=== PATIENT | female | born 1990 | race Caucasian/White ===

== ENCOUNTER 2019-10-13 12:46 | Outpatient (CLI) | payer OTHER, SELFPAY | END 2019-10-13 12:47 | disposition home or self-care (01) | LOC: ANHAUDIO 12:48 | PROVIDERS: PCP Physician Assistant; Visit Provider Physician Assistant | DX: H91.93 Unspecified hearing loss, bilateral (principal) | CPT/HCPCS: 92552; 92556; 92567 ==

== ENCOUNTER → 2020-05-14 08:49 | Outpatient (CLI) | payer BC, SELFPAY ==
--- NOTE | ~2020-05-14 | US_ITS ---
US breast BI complete 05/14/2020 09:36 Indication: Breast pain. Palpable right axillary lump. Procedure: High-resolution bilateral breast ultrasound Comparison: No prior studies for comparison. Findings: There are 2 normal-appearing lymph nodes in the right axilla, largest measuring 1.7 cm grea test dimension. No other mass is identified in either breast. No sonographic evidence for malignancy. Impression: 1: No sonographic evidence for malignancy in either breast. Benign-appearing lymph nodes correspond t o the area of palpable concern in the right axilla. BI-RADS CATEGORY 2 - BENIGN FINDINGS Reviewed, dictated and finalized at location A. L PUNCH PRESS OPERATOR Impression: 1: No sonographic evidence for malignancy in either breast. Benign-appearing ly mph nodes correspond to the area of palpable concern in the right axilla. BI-RADS CATEGORY 2 - BENIGN FINDINGS
== END ==
PROVIDERS: Visit Provider Nurse Practitioner Obstetrics & Gynecology
DX: N64.4 Mastodynia (principal); N63.10 Unspecified lump in the right breast, unspecified quadrant
CPT/HCPCS: 76641

== ENCOUNTER 2020-09-13 09:01 | Outpatient (CLI) | payer BC, MEDICAID, SELFPAY ==
--- NOTE | 2020-09-15 15:34 | WPDHOLTEREM ---
Holter/Event Monitor Holter/Event Monitor Date of procedure: 09/13/20 Procedure Type: 24 hour holter monitor Indications: Irregular heart rate Conclusion: 1. 24 hour holter monitor on 09/13/20. 2. Underlying rhythm is sinus rhythm. HR range 53-130 bpm; average HR 88 bpm. 3. There is one premature supraventricular complex. No supraventricular tachycardia. 4. There are 89 premature ventricular complexes and 3 ventricular trigeminy. No ventricular tachycardia. 5. No sinoatrial or atrioventricular blocks. No significant pauses greater than 2 seconds. 6. Patient reports symptoms of loss of breath for a second which demonstrate sinus rhythm, HR range 71-85 bpm.
== END 2020-09-13 09:02 | disposition home or self-care (01) ==
PROVIDERS: PCP Physician Assistant; Visit Provider Obstetrics & Gynecology
DX: R00.8 Other abnormalities of heart beat (principal)
CPT/HCPCS: 93225; 93226

== ENCOUNTER 2020-11-24 19:06 | Observation (INO) | payer BC, MEDICAID, SELFPAY ==
[2020-11-24 19:22] VITALS: BP 128/76; PULSE 79
--- NOTE | 2020-11-24 20:01 | OBADM ---
This patient, Gloria Diehl, admitted to the OB room OB Post 113 for observation. Patient/family oriented to hospital policies and general routines including ID bracelet, bed and alarms, visiting hours, pain management, procedures, bathroom and other care routines, personal items, smoking policy, room service/diet, and visiting hours. Patient/Family are encouraged to report perceived risks to care and to ask questions if they do not understand what they are told or what they should do.
--- NOTE | 2020-11-29 17:05 | PM.OBTRLD ---
OB - Triage/Final Diagnosis Visit Information Date of evaluation: 11/24/20 Reason for evaluation: decreased movement Comments/Additional reasons for admission: I have assessed the risk for this patient, Gloria Diehl, and determined that she would benefit from observation care.
== END 2020-11-24 19:45 | disposition home health service (06) ==
PROVIDERS: Admitting Provider Obstetrics & Gynecology; PCP Physician Assistant; Visit Provider Obstetrics & Gynecology
DX: O36.8130 Decreased fetal movements, third trimester, not applicable or unspecified (principal); Z3A.31 31 weeks gestation of pregnancy
CPT/HCPCS: 59025; G0378

== ENCOUNTER 2020-12-06 12:48 | Outpatient (RCR) | payer BC, MEDICAID, SELFPAY ==
[2020-12-06 14:12] VITALS: BP 126/57; PULSE 84
== END 2021-01-11 08:17 | disposition home or self-care (01) ==
LOC: ANHOBOP 12:48
PROVIDERS: PCP Physician Assistant; Visit Provider Obstetrics & Gynecology
DX: O24.419 Gestational diabetes mellitus in pregnancy, unspecified control (principal); Z3A.00 Weeks of gestation of pregnancy not specified
CPT/HCPCS: 59025

== ENCOUNTER 2020-12-16 10:01 | Outpatient (CLI) | payer BC, MEDICAID, SELFPAY ==
[2020-12-16] VITALS (8 sets, daily range): BP systolic 104–128; BP diastolic 49–65; PULSE 62–77
[2020-12-16 10:59] LABS: Basophils Percent Auto 0.2 % (0.2-1.2); Eosinophils Percent Auto 0.4 % (0-4.4); Hematocrit 32.5 % (37.0-47.0); Hemoglobin 10.1 g/dL (12.0-15.0); Immature Granulocyte Absolute 0.03 K/mm3 (0.00-0.031); Immature Granulocyte Percent A 0.3 % (0-0.5); Lymphocytes Absolute Auto 1.55 K/mm3 (0.9-3.2); Lymphocytes Percent Auto 16.5 % (18.3-44.2); Mean Corpuscular HGB Conc 31.1 g/dl (32-36); Mean Corpuscular Hemoglobin 23.5 pg (26-34); Mean Corpuscular Volume 75.8 fl (80-100); Mean Platelet Volume 11.6 fl (7.4-10.4); Monocytes Absolute Auto 0.6 K/mm3 (0.1-0.6); Neutrophils Absolute Auto 7.2 K/mm3 (1.3-6.7); Neutrophils Percent Auto 76.6 % (45.5-73.1); Platelet Count Result 196 k/mm3 (150-375); Red Blood Count 4.29 M/mm3 (4.2-5.4); Red Cell Distribution Width 14.6 % (11.5-14.5); White Blood Count 9.4 K/mm3 (4.5-10.0)
[2020-12-16 11:06] LABS: Creatinine Urine 84.8 mg/dL; Total Protein Urine Random 22 mg/dL; Ur Ttl Prot Creatinine Ratio 0.26 mg/mg (0-0.20)
[2020-12-16 11:10] LABS: Alanine Aminotransferase 9 U/L (4-35); Albumin Level 3.2 g/dL (3.5-5.1); Alkaline Phosphatase 89 U/L (38-126); Anion Gap 9 mmol/L (8-16); Aspartate Amino Transferase 17 U/L (14-36); Bilirubin,Total 0.1 mg/dL (0.2-1.3); Blood Urea Nitrogen 9 mg/dL (7-17); Calcium 9.3 mg/dL (8.4-10.2); Carbon Dioxide 19 mmol/L (22-30); Chloride 109 mmol/L (98-107); Estimated Glomerular Filt Rate > 60; Glucose 86 mg/dL (65-105); Potassium 3.9 mmol/L (3.4-5.0); Sodium 137 mmol/L (137-145); Uric Acid 3.8 mg/dL (2.5-7.5)
== END 2020-12-16 12:40 | disposition home or self-care (01) ==
LOC: ANHOBOP 10:08 → ANHOBPP 10:09
PROVIDERS: PCP Physician Assistant; Visit Provider Obstetrics & Gynecology
DX: O13.9 Gestational [pregnancy-induced] hypertension without significant proteinuria, unspecified trimester (principal)
CPT/HCPCS: 36415; 59025; 80053; 82570; 84156; 84550; 85025; 87086; 87088; 99199

== ENCOUNTER 2021-01-04 11:38 | Observation (INO) | payer BC, MEDICAID, SELFPAY ==
[2021-01-04 12:15] VITALS: BP 127/73; PULSE 90
[2021-01-04 12:30] VITALS: BP 128/71; PULSE 85
[2021-01-04 12:45] VITALS: BP 119/74; PULSE 89
[2021-01-04 13:47] VITALS: BMI 45.1
--- NOTE | 2021-01-04 13:47 | LDADM ---
This patient, Gloria Diehl, was admitted to OB Post 112 on 01/04/21 at 11:38. Plans for labor, pain management and were discussed with patient. Patient/family oriented to hospital policies and general routines including ID bracelet, bed and alarms, visiting hours, pain management, procedures, bathroom and other care routines, personal items, smoking policy, room service/diet and guest tray routines, infant security routines, and visiting hours. Patient/Family are encouraged to report perceived risks to care and to ask questions if they do not understand what they are told or what they should do. See OBIX for further documentation.
--- NOTE | 2021-01-04 13:58 | OBADM ---
This patient, Gloria Diehl, admitted to the OB room OB Post 112 for observation. Patient/family oriented to hospital policies and general routines including ID bracelet, bed and alarms, visiting hours, pain management, procedures, bathroom and other care routines, personal items, smoking policy, room service/diet, and visiting hours. Patient/Family are encouraged to report perceived risks to care and to ask questions if they do not understand what they are told or what they should do.
--- NOTE | 2021-01-04 13:58 | PC.NURSE ---
Patient came to us with c/o vaginal bleeding and possible contractions.
--- NOTE | 2021-01-04 13:59 | PC.NURSE ---
Spoke with Dr. Blancas in person about patient status. Dr. Blancas stated to monitor patient, check patient cervix, and if blood pressure remains stable and baby remains reactive she is okay for discharge.
--- NOTE | 2021-01-07 13:14 | PM.OBTRLD ---
OB - Triage/Final Diagnosis Visit Information Comments/Additional reasons for admission: I have assessed the risk for this patient, Gloria Clifton Fazal, and determined that she would benefit from observation care. Final Diagnosis (1) PIH ( induced hypertension): Code(s): O13.9 - Gestational [-induced] hypertension without significant proteinuria, unspecified trimester Status: Acute
== END 2021-01-04 13:40 | disposition home or self-care (01) ==
PROVIDERS: Admitting Provider Obstetrics & Gynecology; PCP Physician Assistant; Visit Provider Obstetrics & Gynecology
DX: O13.9 Gestational [pregnancy-induced] hypertension without significant proteinuria, unspecified trimester (principal); Z3A.00 Weeks of gestation of pregnancy not specified
CPT/HCPCS: G0378; G0379

== ENCOUNTER 2021-01-07 06:26 | Inpatient (IN) | payer BC, MEDICAID, SELFPAY ==
[2021-01-07] VITALS (53 sets, daily range): BP systolic 83–156; BP diastolic 45–110; PULSE 63–127; RESP 16–20; TEMP 36.4–36.9; O2SAT 94–100; BMI 45.3
--- NOTE | 2021-01-07 06:26 | LDADM ---
This patient, Gloria Diehl, was admitted to Labor/Delivery/Recovery 106 on 01/07/21 at 06:26. Plans for labor, pain management and were discussed with patient. Patient/family oriented to hospital policies and general routines including ID bracelet, bed and alarms, visiting hours, pain management, procedures, bathroom and other care routines, personal items, smoking policy, room service/diet and guest tray routines, security routines, and visiting hours. Patient/Family are encouraged to report perceived risks to care and to ask questions if they do not understand what they are told or what they should do. See OBIX for further documentation.
[2021-01-07] MEDS: AMPICILLIN 2 GM/NS 100 ML 2 GM/100 ML BAG IVPB (07:05)
[2021-01-07] MEDS: LACTATED RINGERS 1,000 ML 125 ML IV CONT ×2 (07:05→11:10)
[2021-01-07] MEDS: OXYTOCIN 30 UNITS/NS 500 ML 30 UNITS/500 ML BAG IV CONT (07:22)
[2021-01-07 07:35] LABS: Basophils Percent Auto 0.1 % (0.2-1.2); Eosinophils Absolute Auto 0.1 K/mm3 (0-0.3); Eosinophils Percent Auto 1.1 % (0-4.4); Hematocrit 35.8 % (37.0-47.0); Hemoglobin 10.8 g/dL (12.0-15.0); Immature Granulocyte Absolute 0.05 K/mm3 (0.00-0.031); Immature Granulocyte Percent A 0.5 % (0-0.5); Lymphocytes Absolute Auto 2.35 K/mm3 (0.9-3.2); Lymphocytes Percent Auto 25.1 % (18.3-44.2); Mean Corpuscular HGB Conc 30.2 g/dl (32-36); Mean Corpuscular Hemoglobin 22.4 pg (26-34); Mean Corpuscular Volume 74.1 fl (80-100); Mean Platelet Volume 12.1 fl (7.4-10.4); Monocytes Absolute Auto 0.5 K/mm3 (0.1-0.6); Monocytes Percent Auto 5.3 % (2.6-8.5); Neutrophils Absolute Auto 6.3 K/mm3 (1.3-6.7); Neutrophils Percent Auto 67.9 % (45.5-73.1); Platelet Count Result 240 k/mm3 (150-375); Red Blood Count 4.83 M/mm3 (4.2-5.4); Red Cell Distribution Width 15.5 % (11.5-14.5); White Blood Count 9.4 K/mm3 (4.5-10.0)
[2021-01-07 07:46] LABS: Alanine Aminotransferase 11 U/L (4-35); Albumin Level 3.6 g/dL (3.5-5.1); Alkaline Phosphatase 112 U/L (38-126); Anion Gap 9 mmol/L (8-16); Aspartate Amino Transferase 18 U/L (14-36); Bilirubin,Total 0.2 mg/dL (0.2-1.3); Blood Urea Nitrogen 9 mg/dL (7-17); Calcium 9.3 mg/dL (8.4-10.2); Carbon Dioxide 20 mmol/L (22-30); Chloride 107 mmol/L (98-107); Estimated CRCL calculation 164 ml/min; Estimated Glomerular Filt Rate > 60; Glucose 104 mg/dL (65-105); Potassium 3.8 mmol/L (3.4-5.0); Sodium 136 mmol/L (137-145)
--- NOTE | 2021-01-07 07:50 | WPDOBADMIT ---
Obstetrics - Admit Note Admission Note: record reviewed. No pertinent additions to the history and/or any subsequent changes in the physical findings that are not consistent with the expected course of the were found. Additions to the history and/or subsequent changes in the physical findings follow. IOL for PIH. BP normal this am. FHT category 1 Pitocin now, AROM at noon. GBS pos, amp started at 0700.
[2021-01-07 08:40] LABS: Uric Acid 4.1 mg/dL (2.5-7.5)
--- NOTE | 2021-01-07 09:28 | WPDANESEPP ---
Anes - Eval Pre Procedure Procedure: labor Pain management Date/Time: 01/07/21 09:28 Pre Op Diagnosis: pain during labor Patient Data Age: 31 Gender: F Height: 1.57 m Weight: 112.5 kg Last Vital Signs Temp 97.9 F 01/07/21 06:45 Pulse 74 01/07/21 08:31 BP 127/61 01/07/21 08:31 Allergies Allergy/AdvReac Type Severity Reaction Status Date / Time nickel Allergy Rash Verified 01/07/21 06:38 Home Medications Medication Instructions Recorded Confirmed Type aspirin 81 mg PO DAILY 11/24/20 01/07/21 History omeprazole magnesium [Acid Leaf Sticker 20 mg PO DAILY 11/24/20 01/07/21 History (omeprazole)] PNV cmb#95-ferrous fumarate-FA 1 tablet PO DAILY 12/16/20 01/07/21 History [] ferrous sulfate 28 mg PO DAILY 12/16/20 01/07/21 History insulin NPH and regular human 10 unit SUBCUT DAILY 12/25/20 01/07/21 History Laboratory Tests 01/07/21 01/07/21 01/07/21 07:02 07:02 07:02 WBC 9.4 K/mm3 K/mm3 (4.5-10.0) RBC 4.83 M/mm3 M/mm3 (4.2-5.4) Hgb 10.8 g/dL L g/dL (12.0-15.0) Hct 35.8 % L % (37.0-47.0) MCV 74.1 fl L fl (80-100) MCH 22.4 pg L pg (26-34) MCHC 30.2 g/dl L g/dl (32-36) RDW 15.5 % H % (11.5-14.5) Plt Count 240 k/mm3 k/mm3 (150-375) MPV 12.1 fl H fl (7.4-10.4) Immature Gran % (Auto) 0.5 % % (0-0.5) Neut % (Auto) 67.9 % % (45.5-73.1) Lymph % (Auto) 25.1 % % (18.3-44.2) [place] % (Auto) 5.3 % % (2.6-8.5) Eos % (Auto) 1.1 % % (0-4.4) Baso % (Auto) 0.1 % L % (0.2-1.2) Lymph # (Auto) 2.35 K/mm3 K/mm3 (0.9-3.2) [place] # (Auto) 0.5 K/mm3 K/mm3 (0.1-0.6) Eos # (Auto) 0.1 K/mm3 K/mm3 (0-0.3) Baso # (Auto) 0.0 K/mm3 K/mm3 (0.0-0.1) Abs Immat Gran (auto) 0.05 K/mm3 H K/mm3 (0.00-0.031) Absolute Neuts (auto) 6.3 K/mm3 K/mm3 (1.3-6.7) Absolute Nucleated RBC 0.0 K/mm3 K/mm3 (0.0-0.012) Nucleated RBC % 0.0 % % (0.0-0.2) Sodium Potassium Chloride Carbon Dioxide Anion Gap BUN Creatinine Estim Creat Clear Calc Estimated GFR Glucose Uric Acid 4.1 mg/dL mg/dL (2.5-7.5) Calcium Total Bilirubin AST ALT Alkaline Phosphatase Total Protein Albumin RPR Pending 01/07/21 07:02 WBC RBC Hgb Hct MCV MCH MCHC RDW Plt Count MPV Immature Gran % (Auto) Neut % (Auto) Lymph % (Auto) [place] % (Auto) Eos % (Auto) Baso % (Auto) Lymph # (Auto) [place] # (Auto) Eos # (Auto) Baso # (Auto) Abs Immat Gran (auto) Absolute Neuts (auto) Absolute Nucleated RBC Nucleated RBC % Sodium 136 mmol/L L mmol/L (137-145) Potassium 3.8 mmol/L mmol/L (3.4-5.0) Chloride 107 mmol/L mmol/L (98-107) Carbon Dioxide 20 mmol/L L mmol/L (22-30) Anion Gap 9 mmol/L mmol/L (8-16) BUN 9 mg/dL mg/dL (7-17) Creatinine 0.50 mg/dL L mg/dL (0.7-1.0) Estim Creat Clear Calc 164 ml/min ml/min Estimated GFR > 60 (59 - ) Glucose 104 mg/dL mg/dL (65-105) Uric Acid Calcium 9.3 mg/dL mg/dL (8.4-10.2) Total Bilirubin 0.2 mg/dL mg/dL (0.2-1.3) AST 18 U/L U/L (14-36) ALT 11 U/L U/L (4-35) Alkaline Phosphatase 112 U/L U/L (38-126) Total Protein 7.0 g/dL g/dL (6.3-8.2) Albumin 3.6 g/dL g/dL (3.5-5.1) RPR Patient hx anesthesia problems: none Family hx anesthesia problems: none PMFSH Past Medical History Medical History Tobacco abuse
[2021-01-07 10:46] LABS: Glucose Point of Care 92 mg/dl (65-105)
[2021-01-07] MEDS: fentaNYL CITRATE INJ (*CRX) 100 MCG/2 ML VIAL 50 MCG IV PUSH (11:09)
[2021-01-07] MEDS: AMPICILLIN 1 GM/NS 50 ML 1 GM/50 ML BAG IVPB (11:15)
[2021-01-07 11:50] LABS: Rapid Plasma Reagin Non-Reactive (NonReactive)
--- NOTE | 2021-01-07 13:04 | PM.OBPRVD ---
OB - Delivery Note Procedure Delivery date: 01/07/21 Procedure: events: Induced HTN Intrapartal events: None Induction method: per pitocin protocol Delivery monitor: external FHT and external uterine Route of delivery: Laceration Description: Perineal - 1st Degree Delivery repair: vicryl Specimen: No Quantitative Blood Loss (ml): 350 Anesthesia type: Epidural Disposition: floor Narrative: With adequate expulsive efforts by the mother, the baby's head was delivered OA. The baby's anterior shoulder was delivered under the pubic symphysis without difficulty. The posterior shoulder and the rest of the baby delivered without difficulty. The was placed on the mothers chest and suctioned and stimulated. The cord was clamped and cut after 30 seconds. Mother and baby both stable. Baby Date of : 01/07/21 Time of : 12:49 Weeks of gestation at delivery: 37 Weight (pounds): 7 Weight (ounces): 3 presentation: vertex Placenta delivery description: Spontaneous cord vessel description: 3 Vessels and Delayed Cord Clamping score one minute: 9 score five minutes: 9
[2021-01-07] MEDS: OXYTOCIN 30 UNITS/NS 500 ML 30 UNITS/500 ML BAG 125 UNITS IV CONT (13:24)
[2021-01-07] MEDS: WITCH HAZEL 40 PADS 1 PAD TOPICAL (15:03)
[2021-01-07] MEDS: BENZOCAINE 20% AER SPR (*SP) 56 GM CAN 1 SPRAY TOPICAL (15:03)
[2021-01-07] MEDS: ACETAMINOPHEN 325 MG TABLET 650 MG PO ×2 (15:05→22:14)
--- NOTE | 2021-01-07 15:30 | PC.NURSE ---
Patient transferred to post room #290 per wheelchair from labor and delivery. Support person present. Oriented to unit, room, information board, rooming in, admission packet and security measures. Patient verbalizes understanding.
[2021-01-08 03:59] VITALS: BP 136/76; PULSE 71; RESP 16; RESP 17; TEMP 36.9; O2SAT 99
[2021-01-08 05:25] LABS: Hematocrit 32.2 % (37.0-47.0); Hemoglobin 9.2 g/dL (12.0-15.0)
[2021-01-08] MEDS: IBUPROFEN 600 MG TABLET PO ×3 (06:51→19:12)
[2021-01-08 07:00] VITALS: BP 137/66; PULSE 72; RESP 16; TEMP 36.1; O2SAT 100
--- NOTE | 2021-01-08 08:18 | WPDANLDPN2 ---
Anes-Prog Note L&D Date/Time: 01/08/21 08:18 Comfortable throughout: labor and delivery Neuraxial method: epidural Epidural/Spinal procedure site: clean & non-tender Neuro status: Neuro function grossly intact. Cardiovascular status: normal Respiratory status: normal Airway patency: baseline Mental status: baseline Post-Op hydration status: normal Vital Signs: Last Vital Signs Temp 36.1 C L 01/08/21 07:00 Pulse 72 01/08/21 07:00 Resp 16 01/08/21 07:00 BP 137/66 01/08/21 07:00 Pulse Ox 100 01/08/21 07:00 Pain score (VAS): 0/10. Patient resting in bed at time of assessment, Support person at bedside. I/O: Intake & Output 01/07/21 01/08/21 01/08/21 23:59 07:59 15:59 Intake Total 1300 400 Output Total 860 460 Balance 440 -60 Post-procedural complaints: none Patient feedback: Patient satisfied with anesthetic care.
--- NOTE | 2021-01-08 09:26 | PM.OBPNVD ---
OB - PN: Subj Subjective Date/time seen: 01/08/21 09:26 Interval history: Exhausted, breast feeding not going well so far. Patient comments: pain well controlled [place] feeding status: breast and bottle feeding OB - PN: Obj Data Labs CBC & Chem 7: 01/08/21 04:47 01/07/21 07:02 Labs: Laboratory Results - last 24 hr 01/07/21 01/07/21 01/07/21 07:02 07:02 10:44 Hgb Hct POC Capillary Glucose 92 RPR Non-reactive Blood Type A Positive Antibody Screen Negative 01/08/21 04:47 Hgb 9.2 L Hct 32.2 L POC Capillary Glucose RPR Blood Type Antibody Screen OB - PN A/P Plan day: 1 Plan: routine care Comments: BPs 130s/70s staying until tomorrow since GBS pos. Time Spent With Patient Time: Total time spent is greater than 50% in coordination of care (as documented) at patient's floor/unit and/or counseling patient: Time with patient: less than 15 minutes Exam Narrative: Exam Narrative: NAD abdomen soft, nontender, fundus firm below the umbilicus Extremities nontender, 1+ edema
[2021-01-08] MEDS: DOCUSATE SODIUM 100 MG CAPSULE PO ×2 (10:50→17:02)
[2021-01-08] MEDS: MULTIVIT/MIN/PREN/FOL AC/IRON TABLET 1 TAB PO (10:51)
[2021-01-08] MEDS: POLYSACCHARIDE IRON COMPLEX 150 MG CAPSULE PO ×2 (10:51→17:02)
[2021-01-08 12:00] VITALS: BP 131/55; PULSE 74; RESP 16; TEMP 37.1; O2SAT 100
[2021-01-08] MEDS: ACETAMINOPHEN 325 MG TABLET 650 MG PO (17:02)
[2021-01-08 17:16] VITALS: BP 133/68; PULSE 65; RESP 20; TEMP 36.3
[2021-01-08] MEDS: SIMETHICONE 80 MG TAB.CHEW PO (19:12)
[2021-01-08 19:24] VITALS: BP 116/63; PULSE 78; RESP 16; TEMP 36.5
[2021-01-09 03:08] VITALS: BP 112/57; PULSE 79
[2021-01-09 09:17] VITALS: PULSE 79; RESP 16; O2SAT 100
[2021-01-09 09:43] VITALS: BP 128/63; PULSE 81; RESP 20; TEMP 36.3; O2SAT 97
[2021-01-09] MEDS: POLYSACCHARIDE IRON COMPLEX 150 MG CAPSULE PO (09:53)
[2021-01-09] MEDS: DOCUSATE SODIUM 100 MG CAPSULE PO (09:53)
[2021-01-09] MEDS: ACETAMINOPHEN 325 MG TABLET 650 MG PO (09:54)
[2021-01-09] MEDS: MULTIVIT/MIN/PREN/FOL AC/IRON TABLET 1 TAB PO (09:54)
--- NOTE | 2021-01-09 10:04 | P.PNOB_ITS ---
OB - PN: Subj Subjective Date/time seen: 01/09/21 10:04 Patient comments: no complaints and pain well controlled baby status: doing well [place] feeding status: breast and bottle feeding Narrative: complains of anxiety already getting pretty bad. declined meds during , but would like to start something now. OB - PN: Obj Data Labs CBC & Chem 7: 01/08/21 04:47 01/07/21 07:02 OB - PN A/P Plan day: 2 Plan: routine care and discharge home Comments: BP check 1 week will start zoloft now. discussed usage, RBA. Time Spent With Patient Time: Total time spent is greater than 50% in coordination of care (as documented) at patient's floor/unit and/or counseling patient: Time with patient: less than 15 minutes Exam Narrative: Exam Narrative: NAD abdomen soft, nontender, fundus firm below the umbilicus Extremities nontender, 1+ edema
--- NOTE | 2021-01-09 10:09 | P.DS_ITS ---
DS: Admitting Diagnosis Admitting Diagnosis Admitting Diagnosis: PIH, GDM, 37 week DS: Discharge Diagnosis Discharge Diagnosis (1) PIH ( induced hypertension): Code(s): O13.9 - Gestational [-induced] hypertension without significant proteinuria, unspecified trimester Status: Acute (2) , delivered: Code(s): O80 - Encounter for full-term uncomplicated delivery Status: Acute OB - DS: Summary Hospital Course Hospital Course: Pt had an uncomplicated vaginal delivery and course. BPs were stable at normal or mildly elevated. She started zoloft for anxiety. OB Procedures : NST, PIH Mgmt and Ultrasound OB Procedures Intrapartum: Spontaneous Vag Delivery OB Procedures: : None Peripartum Data Delivery Method: Natural Vaginal complications: none Status at Discharge Functional status at discharge: independent ambulation Overall status at discharge: patient is back to baseline Time Spent with Patient Time attestation: Total time spent providing and/or coordinating discharge services: Exam Narrative: Exam Narrative: NAD abdomen soft, appropriately tender Ext non tender, 1+ edema Discharge Plan Discharge Attending physician on discharge: arthur Consulting providers: Crystal Blancas Discharging Clinician: Crystal Blancas Anticipated Discharge Date/Time: 01/09/21 12:00 Patient Disposition: Home, Self-Care Activity: pelvic rest Diet: regular Patient Instructions: Antibiotic Form Stand Alone Forms: General Discharge Information Follow-up/Referrals: Crystal Blancas MD [Physician] - 1 Week Discharge Medications: New sertraline [Zoloft] 50 mg Tablet 50 mg PO HS Qty: 30 RF: 2 Continued omeprazole magnesium [Acid Director Of Land (omeprazole)] 20 mg Capsule,Delayed Release(Dr/Ec) 20 mg PO DAILY RF: 0 ferrous sulfate 28 mg iron Tablet 28 mg PO DAILY RF: 0 PNV cmb#95-ferrous fumarate-FA [] 28 mg iron- 800 mcg Tablet 1 tablet PO DAILY RF: 0 Discontinued aspirin 81 mg Tablet 81 mg PO DAILY RF: 0 insulin NPH and regular human 100 unit/mL (70-30) Syringe 10 unit SUBCUT DAILY RF: 0 Date of admission: 01/07/21 06:26 Primary Care Provider: NarenSharmaine Admitting Provider: Crystal Blancas Attending physician on admission: Crystal Blancas Condition: Stable
[2021-01-11 10:51] VITALS: BP 132/66; PULSE 79; RESP 20; TEMP 37.2; O2SAT 98
== END 2021-01-09 11:20 | disposition home or self-care (01) | DRG 807 ==
LOC: ANHLDR 09:30 → ANHOB2 15:38
PROVIDERS: Admitting Provider Obstetrics & Gynecology; PCP Physician Assistant; Visit Provider Obstetrics & Gynecology
DX: O13.4 Gestational [pregnancy-induced] hypertension without significant proteinuria, complicating childbirth (principal); Z37.0 Single live birth; O70.0 First degree perineal laceration during delivery; O24.424 Gestational diabetes mellitus in childbirth, insulin controlled; O99.344 Other mental disorders complicating childbirth; O76 Abnormality in fetal heart rate and rhythm complicating labor and delivery; Z3A.37 37 weeks gestation of pregnancy; F41.8 Other specified anxiety disorders
CPT/HCPCS: 36415; 80053; 82948; 84550; 85014; 85018; 85025; 86592; 86850; 86900; 86901; A9270; G0378; G0379; J0290; J2590; J2795; J3010; J7120

== ENCOUNTER 2021-11-02 15:42 | Outpatient (CLI) | payer BC, MEDICAID, SELFPAY ==
[2021-11-02 16:14] LABS: Hematocrit 39.8 % (37.0-47.0); Hemoglobin 11.8 g/dL (12.0-15.0); Mean Corpuscular HGB Conc 29.6 g/dl (32-36); Mean Corpuscular Hemoglobin 24.1 pg (26-34); Mean Corpuscular Volume 81.4 fl (80-100); Mean Platelet Volume 10.7 fl (7.4-10.4); Platelet Count Result 272 k/mm3 (150-375); Red Blood Count 4.89 M/mm3 (4.2-5.4); Red Cell Distribution Width 17.2 % (11.5-14.5)
[2021-11-02 16:23] LABS: Alanine Aminotransferase 23 U/L (4-35); Albumin Level 4.7 g/dL (3.5-5.1); Alkaline Phosphatase 56 U/L (38-126); Anion Gap 11 mmol/L (8-16); Aspartate Amino Transferase 24 U/L (14-36); Bilirubin,Total 0.1 mg/dL (0.2-1.3); Blood Urea Nitrogen 8 mg/dL (7-17); Calcium 8.9 mg/dL (8.4-10.2); Carbon Dioxide 26 mmol/L (22-30); Chloride 102 mmol/L (98-107); Estimated Glomerular Filt Rate > 60; Glucose 133 mg/dL (65-110); Potassium 3.6 mmol/L (3.4-5.0); Sodium 139 mmol/L (137-145)
== END 2021-11-02 15:43 | disposition home or self-care (01) ==
LOC: ANHLAB 15:53
PROVIDERS: PCP Physician Assistant; Visit Provider Obstetrics & Gynecology
DX: O00.90 Unspecified ectopic pregnancy without intrauterine pregnancy (principal); Z3A.00 Weeks of gestation of pregnancy not specified
CPT/HCPCS: 36415; 80053; 84702; 85027

== ENCOUNTER 2023-09-07 13:47 | Outpatient (CLI) | payer OTHER, MEDICAID, SELFPAY ==
--- NOTE | ~2023-09-07 | US_ITS ---
EXAMINATION: US abdomen complete DATE: 09/07/2023 16:25 INDICATION: Right upper quadrant pain TECHNIQUE: Multiple grayscale and Doppler ultrasound images of the abdomen were obtained. COMPARISON: None available FINDINGS: Bowel gas obscures visualization of the pancreas. The visualized portions of the pancreas a re unremarkable. The liver demonstrates increased echogenicity, heterogenous echotexture, and decreas ed through transmission, consistent with hepatic steatosis. No surface nodularity. Normal hepatopetal flow in the main portal vein. The gallbladder is normal with no abnormal wall thickening, pericholec ystic fluid or stones. The normal common bile duct measures 5 mm. There was no sonographic P[place] sig n. The visualized portions of the aorta and inferior vena cava are normal. The spleen is normal in appearance and measures 13.2 cm. The right kidney measures 10.9 x 5.6 x 6.1 c m. The left kidney measures 12.8 x 6.3 x 5.8 cm. The kidneys demonstrate normal parenchymal echogenic ity. There is no hydronephrosis. IMPRESSION: 1. No sonographic correlate for the patient's symptoms. Reviewed, dictated and finalized at location F. TRY BARN MANAGER
[2023-09-07 14:45] LABS: Basophils Percent Auto 0.2 % (0.2-1.2); Eosinophils Absolute Auto 0.1 K/mm3 (0-0.3); Eosinophils Percent Auto 1.4 % (0-4.4); Hematocrit 39.5 % (37.0-47.0); Immature Granulocyte Absolute 0.02 K/mm3 (0.00-0.031); Immature Granulocyte Percent A 0.2 % (0-0.5); Lymphocytes Absolute Auto 2.22 K/mm3 (0.9-3.2); Lymphocytes Percent Auto 27.5 % (18.3-44.2); Mean Corpuscular HGB Conc 30.4 g/dl (32-36); Mean Corpuscular Hemoglobin 24.3 pg (26-34); Mean Corpuscular Volume 80.1 fl (80-100); Mean Platelet Volume 11.3 fl (7.4-10.4); Monocytes Absolute Auto 0.4 K/mm3 (0.1-0.6); Monocytes Percent Auto 4.3 % (2.6-8.5); Neutrophils Absolute Auto 5.4 K/mm3 (1.3-6.7); Neutrophils Percent Auto 66.4 % (45.5-73.1); Platelet Count Result 268 k/mm3 (150-375); Red Blood Count 4.93 M/mm3 (4.2-5.4); Red Cell Distribution Width 15.8 % (11.5-14.5); White Blood Count 8.1 K/mm3 (4.5-10.0)
[2023-09-07 15:24] LABS: Alanine Aminotransferase 31 U/L (6-35); Albumin Level 4.6 g/dL (3.5-5.1); Alkaline Phosphatase 57 U/L (38-126); Amylase 47 U/L (30-110); Anion Gap 12 mmol/L (8-16); Aspartate Amino Transferase 31 U/L (14-36); Bilirubin,Total 0.4 mg/dL (0.2-1.3); Blood Urea Nitrogen 9 mg/dL (7-17); Calcium 9.7 mg/dL (8.4-10.2); Carbon Dioxide 26 mmol/L (22-30); Chloride 102 mmol/L (98-107); Estimated Glomerular Filt Rate > 60; Glucose 117 mg/dL (65-110); Lipase 84 U/L (23-300); Potassium 3.5 mmol/L (3.4-5.0); Sodium 140 mmol/L (137-145)
== END 2023-09-07 13:48 | disposition home or self-care (01) ==
PROVIDERS: PCP Physician Assistant; Visit Provider Nurse Practitioner Obstetrics & Gynecology
DX: R10.11 Right upper quadrant pain (principal)
CPT/HCPCS: 36415; 76700; 80053; 82150; 82542; 83690; 85025